=== PATIENT | female | born 1970 | race Two or more races ===

== ENCOUNTER 2021-06-07 18:49 | Emergency (ER) | payer MEDICAID, OTHER ==
[~2021-06-07] VITALS: Ht 149.9 cm; Wt 58.5 kg
[2021-06-07] MEDS ORDERED: PANT40TA2 PO (21:15)
[2021-06-07] MEDS ORDERED: PRED20TA2 PO (21:15)
[2021-06-07] MEDS ORDERED: predniSONE 20 MG TAB PO ONE (21:15)
[2021-06-07 21:44] VITALS: BP 146/91
== END 2021-06-07 21:46 | disposition home or self-care (01) ==
LOC: ER 18:54
DX: I16.0 Hypertensive urgency (principal); G51.0 Bell's palsy
CPT/HCPCS: 70450; 99284; J7512

== ENCOUNTER 2021-06-08 16:20 | Inpatient (IN) | payer MEDICAID ==
[~2021-06-08] VITALS: Ht 149.9 cm; Wt 65.8 kg
[~2021-06-08 16:20] MED LIST: PANT40TA2 PO; PRED20TA2 PO
[2021-06-08] MEDS ORDERED: LORazepam 2MG/ML-1ML VIAL IV ONE (16:45)
[2021-06-08] MEDS ORDERED: SODIUM CHLORIDE 0.9% 1,000 ML IV ONE ×2 (16:45→22:00)
[2021-06-08 17:21] LABS: Albumin 4.3 g/dL (3.4-5.0); BUN/Creatinine Ratio 11.2; Calcium 9.5 mg/dL (8.5-10.1); Magnesium 2.3 mg/dL (1.6-2.6); Potassium 4.3 mmol/L (3.5-5.1)
[2021-06-08 17:23] LABS: Bilirubin, Total 0.6 mg/dL (0.2-1.0); Total Protein 8.9 g/dL (6.4-8.2)
[2021-06-08 17:28] LABS: Basophils # (auto) 0 10 ^3/uL (0-0.2); Basophils % (auto) 0.2 % (0.0-2.0); Eosinophils # (auto) 0 10 ^3/uL (0-0.8); Eosinophils % (auto) 0.1 % (0.0-7.0); Hematocrit 43.6 % (36.0-46.0); Hemoglobin 14.3 g/dL (12.2-16.2); Lymphocytes # (auto) 1.2 10 ^3/uL (0.4-5.4); Lymphocytes % (auto) 11.8 % (10.0-50.0); Mean Corpuscular Hemoglobin 29.3 pg (28.0-32.0); Mean Corpuscular Hgb Conc. 32.8 g/dL (32.0-36.0); Mean Corpuscular Volume 89.2 fL (80.0-100.0); Monocytes # (auto) 0.2 10 ^3/uL (0-1.3); Monocytes % (auto) 1.8 % (0.0-12.0); Neutrophils % (auto) 86.1 % (37.0-80.0); Nucleated Red Blood Cells % 0.1 %; Red Blood Cells 4.89 10^6/uL (4.0-5.20); Red Cell Distribution Width 14.7 % (11.8-14.3); White Blood Cell 10.5 10^3/uL (4.4-10.8)
[2021-06-08 18:01] LABS: INR 0.99 (0.9-1.15); Partial Thromboplastin Time 25.4 sec (23.6-33.0)
[2021-06-08 20:34] LABS: Urine Bacteria FEW /hpf (None Seen); Urine Blood Negative /uL (Negative); Urine Mucus FEW (None Seen); Urine Specific Gravity 1.021 (1.001-1.035); Urine WBC 2 /hpf (0 - 5)
[2021-06-08 20:41] LABS: Alcohol, Urine < 3.0 mg/dL (0-10); Amphetamine Screen, Urine NEGATIVE (NEGATIVE); Barbiturate Scree,Urine NEGATIVE (NEGATIVE); Benzodiazephine Screen, Urine NEGATIVE (NEGATIVE); Cannabinoid Screen, Urine NEGATIVE (NEGATIVE); Cocaine Screen, Urine NEGATIVE (NEGATIVE); Opiate Scree,Urine NEGATIVE (NEGATIVE); Phencyclidine Screen, Urine NEGATIVE (NEGATIVE)
[2021-06-08] MEDS ORDERED: ONDANSETRON HCL 4 MG/2 ML VIAL IM ONE (22:00)
[2021-06-08] MEDS ORDERED: MORPHINE SULFATE INJECTION 2 MG/ML SYRG IV ONE (22:00)
[2021-06-08] MEDS ORDERED: ACETAMINOPHEN 325 MG TAB PO PRN (22:15)
[2021-06-08] MEDS ORDERED: ONDANSETRON HCL 4 MG/2 ML VIAL IV PRN (22:15)
[2021-06-08] MEDS ORDERED: predniSONE 20 MG TAB PO ONE (22:15)
[2021-06-08] MEDS ORDERED: MORPHINE SULFATE INJECTION 2 MG/ML SYRG IV PRN (22:15)
[2021-06-08] MEDS ORDERED: TEMAZEPAM 15 MG CAP PO PRN (22:15)
[2021-06-09 01:27] VITALS: BP 135/74
[2021-06-09 05:08] VITALS: BP 107/66
[2021-06-09 07:45] LABS: Basophils # (auto) 0 10 ^3/uL (0-0.2); Basophils % (auto) 0.1 % (0.0-2.0); Eosinophils # (auto) 0 10 ^3/uL (0-0.8); Hemoglobin 13.3 g/dL (12.2-16.2); Lymphocytes # (auto) 0.8 10 ^3/uL (0.4-5.4); Lymphocytes % (auto) 9.8 % (10.0-50.0); Mean Corpuscular Hemoglobin 29.3 pg (28.0-32.0); Mean Corpuscular Hgb Conc. 33.2 g/dL (32.0-36.0); Mean Corpuscular Volume 88.3 fL (80.0-100.0); Monocytes # (auto) 0.1 10 ^3/uL (0-1.3); Monocytes % (auto) 0.8 % (0.0-12.0); Neutrophils # (auto) 6.8 10 ^3/uL (1.6-8.6); Neutrophils % (auto) 89.3 % (37.0-80.0); Red Blood Cells 4.53 10^6/uL (4.0-5.20); Red Cell Distribution Width 14.4 % (11.8-14.3); White Blood Cell 7.7 10^3/uL (4.4-10.8)
[2021-06-09 07:55] LABS: BUN/Creatinine Ratio 17.2; Calcium 8.8 mg/dL (8.5-10.1); Potassium 3.8 mmol/L (3.5-5.1)
[2021-06-09] MEDS: LISINOPRIL 5 MG TAB PO SCH (09:25)
[2021-06-09 09:30] VITALS: BP 136/75
[2021-06-09] MEDS ORDERED: LORazepam 2MG/ML-1ML VIAL IV PRN (09:30)
[2021-06-09] MEDS: FAMOTIDINE 20 MG TAB PO SCH ×2 (09:36→21:49)
[2021-06-09] MEDS ORDERED: predniSONE 20 MG TAB PO SCH ×2 (10:00)
[2021-06-09] MEDS ORDERED: GADOTERATE MEG 10 MMOL/20ml INJ (0.5MMOL/ml) IV ONE (10:25)
[2021-06-09] MEDS ORDERED: DEXTROSE (50%) 50ML SYRG IV PRN (14:15)
[2021-06-09] MEDS ORDERED: INSULIN LANTUS (GLARGINE) 1 /0.01ml (100units/ml) SC ONE (14:15)
[2021-06-09] MEDS: HYDROcodone-ACET 5/325MG TAB PO PRN (16:29)
[2021-06-09] MEDS: InsuLIN REG 1unit/0.01ml Soln (100units/ml) SC SCH (16:49)
[2021-06-09] MEDS: ACCU-CHEK COMFORT CURVE STRIP VI SCH (16:50)
[2021-06-09 17:00] VITALS: BP 107/66
[2021-06-09 22:00] VITALS: BP 120/90
[2021-06-09] MEDS ORDERED: ATORVASTATIN 20 MG TAB PO SCH (22:00)
[2021-06-10] MEDS: ACCU-CHEK COMFORT CURVE STRIP VI SCH ×3 (00:18→12:12)
[2021-06-10] MEDS: InsuLIN REG 1unit/0.01ml Soln (100units/ml) SC SCH ×3 (00:21→11:54)
[2021-06-10 04:48] VITALS: BP 91/68
[2021-06-10 09:00] VITALS: BP 91/64
[2021-06-10] MEDS: HYDROcodone-ACET 5/325MG TAB PO PRN (09:22)
[2021-06-10] MEDS: FAMOTIDINE 20 MG TAB PO SCH (09:22)
[2021-06-10] MEDS ORDERED: INSULIN LANTUS (GLARGINE) 1 /0.01ml (100units/ml) SC SCH (10:00)
[2021-06-10] MEDS ORDERED: predniSONE 20 MG TAB PO SCH (10:00)
[2021-06-10] MEDS: LISINOPRIL 5 MG TAB PO SCH (10:00)
[2021-06-10] MEDS ORDERED: FAMO-12 PO (10:40)
[2021-06-10] MEDS ORDERED: PRED20TA2 PO (10:40)
[2021-06-10] MEDS ORDERED: METH4PAK PO (10:40)
[2021-06-10] MEDS ORDERED: GLIP5TAB12 PO (10:40)
[2021-06-10 12:30] VITALS: BP 99/69
[2021-06-10] MEDS ORDERED: TRAM50TA2 PO (14:52)
== END 2021-06-10 14:21 | disposition home or self-care (01) | DRG 48 ==
LOC: ER 16:20 → OVERFLOW 22:11 → EAST 06-09 01:30
PROVIDERS: ADMIT Nurse Practitioner; ATTEND Internal Medicine
DX: G51.0 Bell's palsy (principal); E11.65 Type 2 diabetes mellitus with hyperglycemia; I16.0 Hypertensive urgency; T38.0X5A Adverse effect of glucocorticoids and synthetic analogues, initial encounter; E66.01 Morbid (severe) obesity due to excess calories; I10 Essential (primary) hypertension; E78.5 Hyperlipidemia, unspecified; F41.9 Anxiety disorder, unspecified; Z90.710 Acquired absence of both cervix and uterus; Y92.89 Other specified places as the place of occurrence of the external cause; Z68.23 Body mass index [BMI] 23.0-23.9, adult
CPT/HCPCS: 36415; 70450; 70553; 71045; 80048; 80053; 80307; 81001; 82962; 83036; 83735; 83880; 85025; 85610; 85730; 93005; 96361; 96372; 96374; 96375; 97163; G0378; J1815; J2405

== ENCOUNTER 2021-06-26 17:12 | Emergency (ER) | payer MEDICAID ==
[~2021-06-26] VITALS: Ht 129.5 cm; Wt 56.2 kg
[~2021-06-26 17:12] MED LIST changes: +FAMO-12 PO; +GLIP5TAB12 PO; +METH4PAK PO; -PANT40TA2 PO; +TRAM50TA2 PO
[2021-06-26] MEDS ORDERED: KETOROLAC TROMETH 60MG/2ML VIAL IM ONE (18:30)
[2021-06-26 18:38] VITALS: BP 106/78
== END 2021-06-26 19:13 | disposition home or self-care (01) ==
LOC: ER 17:12
DX: G51.0 Bell's palsy (principal); R51.9 Headache, unspecified
CPT/HCPCS: 96372; 99283; J1885

== ENCOUNTER 2021-11-01 17:00 | Emergency (ER) | payer MEDICAID ==
[~2021-11-01] VITALS: Ht 129.5 cm; Wt 56.0 kg
[2021-11-01] MEDS ORDERED: LIDOCAINE VISCOUS 2% 15ML UD PO ONE (18:00)
[2021-11-01] MEDS ORDERED: ALUM & MAG HYDROX-SIMETH LIQ(MAALOX) 30 ML PO ONE (18:00)
[2021-11-01] MEDS ORDERED: FAMOTIDINE INJECTION 40 MG in SODIUM CHL 0.9% 100 ML IV ONE (18:00)
[2021-11-01] MEDS ORDERED: SODIUM CHLORIDE 0.9% 1,000 ML IV ONE ×2 (18:00→21:15)
[2021-11-01] MEDS ORDERED: ONDANSETRON HCL 4 MG/2 ML VIAL IM ONE (18:00)
[2021-11-01 18:46] LABS: Basophils # (auto) 0 10 ^3/uL (0-0.2); Basophils % (auto) 0.3 % (0.0-2.0); Eosinophils # (auto) 0 10 ^3/uL (0-0.8); Hematocrit 39.7 % (36.0-46.0); Hemoglobin 12.9 g/dL (12.2-16.2); Lymphocytes # (auto) 0.5 10 ^3/uL (0.4-5.4); Lymphocytes % (auto) 5.1 % (10.0-50.0); Mean Corpuscular Hemoglobin 28.7 pg (28.0-32.0); Mean Corpuscular Hgb Conc. 32.5 g/dL (32.0-36.0); Mean Corpuscular Volume 88.2 fL (80.0-100.0); Monocytes # (auto) 0.6 10 ^3/uL (0-1.3); Monocytes % (auto) 5.6 % (0.0-12.0); Neutrophils # (auto) 9.1 10 ^3/uL (1.6-8.6); White Blood Cell 10.2 10^3/uL (4.4-10.8)
[2021-11-01 18:51] LABS: Albumin 3.6 g/dL (3.4-5.0); BUN/Creatinine Ratio 16.7; Calcium 8.5 mg/dL (8.5-10.1); Potassium 3.1 mmol/L (3.5-5.1)
[2021-11-01 19:02] LABS: Bilirubin, Total 0.8 mg/dL (0.2-1.0); Total Protein 7.9 g/dL (6.4-8.2)
[2021-11-01] MEDS ORDERED: KETOROLAC TROMETH 30 MG/ML 1ML VIAL IV ONE (20:00)
[2021-11-01] MEDS ORDERED: POTASSIUM EFFERVESENT TAB 25 MEQ PO ONE (20:00)
[2021-11-01] MEDS ORDERED: HYDROcodone-ACET 5/325MG TAB PO ONE (20:00)
[2021-11-01] MEDS ORDERED: FAMOTIDINE (10MG/ML) 2ML VL IV ONE (20:36)
[2021-11-01 20:51] VITALS: BP 130/81
[2021-11-01] MEDS ORDERED: ACETAMINOPHEN 325 MG TAB PO ONE (21:15)
== END 2021-11-01 21:50 | disposition home or self-care (01) ==
LOC: ER 17:00
DX: B34.9 Viral infection, unspecified (principal); E87.6 Hypokalemia; E11.9 Type 2 diabetes mellitus without complications; R07.89 Other chest pain; Z90.710 Acquired absence of both cervix and uterus; Z20.822 Contact with and (suspected) exposure to COVID-19
CPT/HCPCS: 36415; 71045; 80053; 85025; 87426; 93005; 96361; 96365; 96372; 96375; 99285; J1885; J2405; J3490; J7030

== ENCOUNTER 2021-11-02 15:46 | Inpatient (IN) | payer MEDICAID ==
[~2021-11-02] VITALS: Ht 149.9 cm; Wt 63.0 kg
[2021-11-02] MEDS ORDERED: ACETAMINOPHEN 325 MG TAB PO ONE (16:30)
[2021-11-02] MEDS ORDERED: ACETAMINOPHEN 500 MG TAB PO ONE (16:32)
[2021-11-02 20:26] LABS: Basophils # (auto) 0 10 ^3/uL (0-0.2); Basophils % (auto) 0.3 % (0.0-2.0); Eosinophils # (auto) 0 10 ^3/uL (0-0.8); Hematocrit 37.9 % (36.0-46.0); Hemoglobin 12.5 g/dL (12.2-16.2); Lymphocytes # (auto) 0.3 10 ^3/uL (0.4-5.4); Mean Corpuscular Hemoglobin 28.4 pg (28.0-32.0); Mean Corpuscular Hgb Conc. 32.9 g/dL (32.0-36.0); Mean Corpuscular Volume 86.2 fL (80.0-100.0); Monocytes # (auto) 0.6 10 ^3/uL (0-1.3); Monocytes % (auto) 6.2 % (0.0-12.0); Neutrophils % (auto) 90.5 % (37.0-80.0); Red Blood Cells 4.39 10^6/uL (4.0-5.20); Red Cell Distribution Width 15.1 % (11.8-14.3); White Blood Cell 9.9 10^3/uL (4.4-10.8)
[2021-11-02 20:52] LABS: Albumin 3.3 g/dL (3.4-5.0); BUN/Creatinine Ratio 12.5; Calcium 7.8 mg/dL (8.5-10.1); Potassium 3.3 mmol/L (3.5-5.1)
[2021-11-02 21:04] LABS: Bilirubin, Total 0.9 mg/dL (0.2-1.0); Total Protein 6.9 g/dL (6.4-8.2)
[2021-11-03] VITALS (29 sets, daily range): BP systolic 81–119; BP diastolic 55–84
[2021-11-03 00:11] LABS: Urine Bacteria MANY /hpf (None Seen); Urine Blood TRACE /uL (Negative); Urine Specific Gravity 1.007 (1.001-1.035); Urine WBC 17 /hpf (0 - 5)
[2021-11-03] MEDS ORDERED: OXYCODONE W/ ACETAMINOPHEN 5/325MG TABLET PO ONE (00:30)
[2021-11-03] MEDS ORDERED: cefTRIAXone 1GM/50ML D5W 50 ML IV ONE (01:45)
[2021-11-03] MEDS ORDERED: AZITHROMYCIN 250 MG TAB PO ONE (01:45)
[2021-11-03] MEDS ORDERED: SODIUM CHLORIDE 0.9% 1,000 ML IV ONE (03:45)
[2021-11-03] MEDS ORDERED: TEMAZEPAM 15 MG CAP PO PRN (04:00)
[2021-11-03] MEDS ORDERED: MORPHINE SULFATE INJ 2 MG/ml SYRG IV PRN (04:00)
[2021-11-03] MEDS ORDERED: ALBUMIN 5% 250 ML IV ONE (04:00)
[2021-11-03] MEDS ORDERED: ONDANSETRON HCL 4 MG/2 ML VIAL IV PRN (04:00)
[2021-11-03] MEDS ORDERED: DEXTROSE (50%) 50ML SYRG IV PRN (04:00)
[2021-11-03] MEDS ORDERED: NITROGLYCERIN 0.4 MG SL TAB SL PRN (04:00)
[2021-11-03] MEDS ORDERED: LORazepam 2MG/ML-1ML VIAL IV ONE (04:15)
[2021-11-03] MEDS ORDERED: dilTIAZem 25 MG/5 ML VIAL IV ONE ×2 (05:19→05:30)
[2021-11-03] MEDS: ACETAMINOPHEN 325 MG TAB PO PRN (05:57)
[2021-11-03] MEDS ORDERED: SODIUM CHLORIDE 0.9% 500 ML IV ONE (07:00)
[2021-11-03] MEDS: ACCU-CHEK COMFORT CURVE STRIP VI SCH ×4 (07:04→22:00)
[2021-11-03] MEDS: InsuLIN REG 1unit/0.01ml Soln (100units/ml) SC SCH ×4 (07:07→22:00)
[2021-11-03 07:58] LABS: Basophils # (auto) 0 10 ^3/uL (0-0.2); Basophils % (auto) 0.2 % (0.0-2.0); Eosinophils # (auto) 0 10 ^3/uL (0-0.8); Hematocrit 34.3 % (36.0-46.0); Hemoglobin 11.4 g/dL (12.2-16.2); Lymphocytes # (auto) 0.2 10 ^3/uL (0.4-5.4); Lymphocytes % (auto) 3.5 % (10.0-50.0); Mean Corpuscular Hemoglobin 28.7 pg (28.0-32.0); Mean Corpuscular Hgb Conc. 33.1 g/dL (32.0-36.0); Mean Corpuscular Volume 86.7 fL (80.0-100.0); Monocytes # (auto) 0.2 10 ^3/uL (0-1.3); Monocytes % (auto) 2.5 % (0.0-12.0); Neutrophils # (auto) 6.1 10 ^3/uL (1.6-8.6); Neutrophils % (auto) 93.8 % (37.0-80.0); Nucleated Red Blood Cells % 0.1 %; Red Blood Cells 3.96 10^6/uL (4.0-5.20); Red Cell Distribution Width 15.1 % (11.8-14.3); White Blood Cell 6.5 10^3/uL (4.4-10.8)
[2021-11-03] MEDS ORDERED: SODIUM CHLORIDE 0.9% 1,000 ML IV SCH (08:00)
[2021-11-03 08:09] LABS: BUN/Creatinine Ratio 10.3; Calcium 7.9 mg/dL (8.5-10.1); Potassium 3.1 mmol/L (3.5-5.1)
[2021-11-03] MEDS ORDERED: SODIUM CHLORIDE 0.9% 2,000 ML IV ONE (08:45)
[2021-11-03] MEDS: cefTRIAXone 1GM/50ML D5W 50 ML IV SCH (09:29)
[2021-11-03] MEDS: PANTOPRAZOLE 40 MG TAB PO SCH (10:00)
[2021-11-03] MEDS: AZITHROMYCIN 500MG/ 250ML 250 ML IV SCH (10:00)
[2021-11-03] MEDS: NOREPINEPHRINE 8 MG/250ML KIT 250 ML IV SCH (11:48)
[2021-11-03] MEDS ORDERED: POTASSIUM EFFERVESENT TAB 25 MEQ PO ONE (13:30)
[2021-11-03] MEDS ORDERED: VANCOMYCIN PER PHARMACY 0 MG IV SCH (13:30)
[2021-11-03] MEDS ORDERED: VANCOMYCIN 1GM/250ML 250 ML IV ONE (15:00)
[2021-11-03] MEDS ORDERED: METF-370 PO (17:13)
[2021-11-04] VITALS (65 sets, daily range): BP systolic 82–131; BP diastolic 55–83
[2021-11-04] MEDS: SODIUM CHLORIDE 0.9% 1,000 ML IV SCH ×4 (02:30→21:56)
[2021-11-04] MEDS: ACETAMINOPHEN 325 MG TAB PO PRN ×3 (03:30→18:27)
[2021-11-04 05:13] LABS: Basophils # (auto) 0 10 ^3/uL (0-0.2); Basophils % (auto) 0.1 % (0.0-2.0); Eosinophils # (auto) 0 10 ^3/uL (0-0.8); Eosinophils % (auto) 0.1 % (0.0-7.0); Hematocrit 31.7 % (36.0-46.0); Hemoglobin 10.2 g/dL (12.2-16.2); Lymphocytes # (auto) 1.2 10 ^3/uL (0.4-5.4); Lymphocytes % (auto) 10.7 % (10.0-50.0); Mean Corpuscular Hgb Conc. 32.1 g/dL (32.0-36.0); Mean Corpuscular Volume 87.2 fL (80.0-100.0); Monocytes % (auto) 9.1 % (0.0-12.0); Neutrophils # (auto) 9.1 10 ^3/uL (1.6-8.6); Red Blood Cells 3.63 10^6/uL (4.0-5.20); Red Cell Distribution Width 15.5 % (11.8-14.3); White Blood Cell 11.4 10^3/uL (4.4-10.8)
[2021-11-04 05:34] LABS: Albumin 2.5 g/dL (3.4-5.0); Calcium 7.8 mg/dL (8.5-10.1); Potassium 3.7 mmol/L (3.5-5.1)
[2021-11-04 05:40] LABS: BUN/Creatinine Ratio 19.4; Bilirubin, Total 0.5 mg/dL (0.2-1.0); Total Protein 5.3 g/dL (6.4-8.2)
[2021-11-04] MEDS: InsuLIN REG 1unit/0.01ml Soln (100units/ml) SC SCH ×4 (06:39→21:54)
[2021-11-04] MEDS: ACCU-CHEK COMFORT CURVE STRIP VI SCH ×4 (06:39→21:55)
[2021-11-04] MEDS: VANCOMYCIN 1GM/250ML 250 ML IV SCH ×2 (06:39→21:53)
[2021-11-04] MEDS: cefTRIAXone 1GM/50ML D5W 50 ML IV SCH (09:11)
[2021-11-04] MEDS: AZITHROMYCIN 500MG/ 250ML 250 ML IV SCH (11:22)
[2021-11-04] MEDS: PANTOPRAZOLE 40 MG TAB PO SCH (11:23)
[2021-11-04] MEDS: NOREPINEPHRINE 8 MG/250ML KIT 250 ML IV SCH (11:30)
[2021-11-05] VITALS (18 sets, daily range): BP systolic 99–132; BP diastolic 62–90
[2021-11-05 05:12] LABS: Basophils # (auto) 0 10 ^3/uL (0-0.2); Basophils % (auto) 0.3 % (0.0-2.0); Eosinophils # (auto) 0 10 ^3/uL (0-0.8); Eosinophils % (auto) 0.2 % (0.0-7.0); Hematocrit 31.4 % (36.0-46.0); Hemoglobin 10.5 g/dL (12.2-16.2); Lymphocytes # (auto) 1.4 10 ^3/uL (0.4-5.4); Lymphocytes % (auto) 15.4 % (10.0-50.0); Mean Corpuscular Hemoglobin 28.8 pg (28.0-32.0); Mean Corpuscular Hgb Conc. 33.4 g/dL (32.0-36.0); Mean Corpuscular Volume 86.2 fL (80.0-100.0); Monocytes # (auto) 0.7 10 ^3/uL (0-1.3); Monocytes % (auto) 7.3 % (0.0-12.0); Neutrophils % (auto) 76.8 % (37.0-80.0); Red Blood Cells 3.64 10^6/uL (4.0-5.20); Red Cell Distribution Width 15.2 % (11.8-14.3); White Blood Cell 9.2 10^3/uL (4.4-10.8)
[2021-11-05 05:32] LABS: BUN/Creatinine Ratio 23.1; Calcium 7.6 mg/dL (8.5-10.1); Potassium 3.4 mmol/L (3.5-5.1)
[2021-11-05] MEDS: ACCU-CHEK COMFORT CURVE STRIP VI SCH ×4 (06:37→22:14)
[2021-11-05] MEDS: InsuLIN REG 1unit/0.01ml Soln (100units/ml) SC SCH ×4 (06:37→22:14)
[2021-11-05] MEDS: SODIUM CHLORIDE 0.9% 1,000 ML IV SCH ×2 (07:00→16:14)
[2021-11-05] MEDS: PANTOPRAZOLE 40 MG TAB PO SCH (09:07)
[2021-11-05] MEDS: cefTRIAXone 1GM/50ML D5W 50 ML IV SCH (09:11)
[2021-11-05] MEDS: AZITHROMYCIN 500MG/ 250ML 250 ML IV SCH (10:00)
[2021-11-05] MEDS: NOREPINEPHRINE 8 MG/250ML KIT 250 ML IV SCH (11:30)
[2021-11-05] MEDS: VANCOMYCIN 1GM/250ML 250 ML IV SCH ×2 (12:02→22:07)
[2021-11-05] MEDS ORDERED: SULF400T11 PO (14:16)
[2021-11-05] MEDS ORDERED: DOXY-338 PO (14:16)
[2021-11-05] MEDS: ACETAMINOPHEN 325 MG TAB PO PRN (22:14)
[2021-11-06] MEDS: SODIUM CHLORIDE 0.9% 1,000 ML IV SCH (03:35)
[2021-11-06] MEDS: VANCOMYCIN 1GM/250ML 250 ML IV SCH ×2 (04:16→12:00)
[2021-11-06 04:46] VITALS: BP 110/63
[2021-11-06] MEDS: ACCU-CHEK COMFORT CURVE STRIP VI SCH ×2 (06:54→12:34)
[2021-11-06] MEDS: InsuLIN REG 1unit/0.01ml Soln (100units/ml) SC SCH ×3 (06:55→12:38)
[2021-11-06 07:50] VITALS: BP 123/75
[2021-11-06 08:45] VITALS: BP 123/75
[2021-11-06] MEDS: PANTOPRAZOLE 40 MG TAB PO SCH (09:18)
[2021-11-06] MEDS: cefTRIAXone 1GM/50ML D5W 50 ML IV SCH (09:18)
[2021-11-06 12:19] VITALS: BP 123/75
[2021-11-06 13:54] VITALS: BP 123/75
== END 2021-11-06 16:30 | disposition home or self-care (01) | DRG 720 ==
LOC: ER 15:46 → TELE 11-03 03:57 → ICU CENTRL 11-03 16:45 → WEST WING 11-05 17:49
PROVIDERS: ADMIT Nurse Practitioner; ATTEND Hospitalist
DX: A41.9 Sepsis, unspecified organism (principal); G93.41 Metabolic encephalopathy; N12 Tubulo-interstitial nephritis, not specified as acute or chronic; B34.9 Viral infection, unspecified; E11.9 Type 2 diabetes mellitus without complications; Z20.822 Contact with and (suspected) exposure to COVID-19; Z86.73 Personal history of transient ischemic attack (TIA), and cerebral infarction without residual deficits; Z90.710 Acquired absence of both cervix and uterus
CPT/HCPCS: 36415; 36600; 70450; 71045; 74176; 80048; 80053; 80202; 81001; 82805; 82962; 83605; 84484; 85025; 87040; 87081; 87086; 87804; 93005; 96365; 96375; G0378; J0696; J1815; J2405

== ENCOUNTER → 2023-03-15 | Outpatient (CLI) | payer MEDICAID ==
[~2023-03-15] VITALS: Ht 149.9 cm; Wt 54.4 kg
[~2023-03-15] MED LIST changes: +DOXY-447 PO; -FAMO-12 PO; -GLIP5TAB12 PO; +METF-370 PO; -METH4PAK PO; -PRED20TA2 PO; +SULF400T11 PO; -TRAM50TA2 PO
== END | disposition home or self-care (01) ==
LOC: Rad HDHVI 13:33
PROVIDERS: ATTEND Internal Medicine Cardiovascular Disease
DX: Z01.810 Encounter for preprocedural cardiovascular examination (principal); R07.9 Chest pain, unspecified; R06.02 Shortness of breath; E11.8 Type 2 diabetes mellitus with unspecified complications
CPT/HCPCS: 78452; 93017; 96374; A9500

== ENCOUNTER → 2023-03-22 | Outpatient (CLI) | payer MEDICAID | END | disposition home or self-care (01) | LOC: Rad HDHVI 13:53 | PROVIDERS: ATTEND Internal Medicine Cardiovascular Disease | DX: I08.1 Rheumatic disorders of both mitral and tricuspid valves (principal) | CPT/HCPCS: 93306 ==

== ENCOUNTER 2024-05-10 12:13 | Emergency (ER) | payer MEDICAID ==
[~2024-05-10] VITALS: Ht 124.5 cm; Wt 121.8 kg
[~2024-05-10 12:13] MED LIST changes: -DOXY-447 PO; +DOXY1CAP58 PO
[2024-05-10 14:10] VITALS: BP 135/96; PULSE 84; RESP 16; TEMP 97.7; O2SAT 96
--- NOTE | 2024-05-10 14:20 | DVH ---
CLINICAL INDICATION: LOW BACK PAIN TO LOWER LEGS TECHNIQUE: 3 radiographic views of the lumbar spine were obtained. Comparison: None FINDINGS/IMPRESSION: There is no evidence of acute fracture or dislocation of the lumbar spine. The visualized joint space is well maintained. The alignment is anatomical. There is no radiopaque foreign body.
--- NOTE | 2024-05-10 14:45 | ED.PDOC ---
Back pain HPI HPI Comments A 53 YEAR OLD FEMALE PRESENTS TO THE ED WITH CHIEF COMPLAINT OF LOWER BACK PAIN. PATIENT REPORTS THAT SHE HAS BEEN EXPERIENCING INTERMITTENT LOWER BACK PAIN THAT RADIATES DOWN HER LEGS FOR THE PAST 5 MONTHS. PATIENT RELAYS THAT SHE HAS A PENDING MRI ORDERED BY HER PCP. PATIENT DENIES ANY NUMBNESS, WEAKNESS, LEG SWELLING, FALL, OR INJURY AT THIS TIME. NO OTHER SYMPTOMS REPORTED AT THIS TIME OF CARE. PT IS ALERT, ORIENTATION X4 WITH NORMAL GAIT. Chief Complaint: Back Pain Time Seen by MD: 14:42 Primary Care Provider: AIXA Reviewed Notes: Nurses Notes, Medications, Allergies Allergies: Coded Allergies: NO KNOWN ALLERGIES (Unverified , 06/07/21) Home Meds Active Scripts Gabapentin (Gabapentin) 300 Mg Cap, 300 MG PO BID, #30 CAP Prov:EMILY AVALOS 05/10/24 Ibuprofen (Ibuprofen) 800 Mg Tab, 1 TAB PO TID, #30 TAB Prov:EMILY AVALOS 25 Doxycycline (Monohydrate) (Doxycycline) 100 Mg Cap, 100 MG PO BIDBRS, #10 CAP Prov:SHILO GAMBOA MD 11/05/21 Sulfamethoxazole-Trimethoprim (Bactrim) 1 Tab Tab, 1 TAB PO BID, #14 TAB Prov:SHILO GAMBOA MD 11/05/21 Reported Medications Metformin Hydrochloride (Metformin Hcl) 500 Mg Tab, 500 MG PO DAILY for 30 Days, MG 11/03/21 Information Source: Patient Mode of Arrival: Ambulatory Timing: Months Duration: Intermittent Location of Back pain: (B) Lower back Radiates to: Posterior: (B) Buttocks, (B) Thigh Radiates to: Lateral: (B) Buttocks, (B) Thigh Severity: Moderate Prehospital treatment: None Quality: Aching Onset: Spontaneous History of: Chronic Back Pain Modifying Factors: Movement, Twisting, Nothing Associated signs and symptoms: None Past Medical History PAST MEDICAL HISTORY: CVA, DM Surgical History: Hysterectomy HALL CLEANER History: No Pertinent HALL CLEANER History Family History Family History: Reviewed,noncontributory to illness, Family hx of DM Social History Smoker: Non-Smoker Alcohol: Denies ETOH Use Drugs: Denies Drug Use Lives In: Home Constitutional: denies: chills, diaphoresis, fatigue, fever, malaise, sweats, weakness, others EENTM: denies: blurred vision, double vision, ear bleeding, ear discharge, ear drainage, ear pain, ear ringing, eye pain, eye redness, hearing loss, mouth pain, mouth swelling, nasal discharge, nose bleeding, nose congestion, nose pain, photophobia, tearing, throat pain, throat swelling, voice changes, others Respiratory: denies: cough, hemoptysis, orthopnea, SOB at rest, shortness of breath, SOB with excertion, stridor, wheezing, others Cardiovascular: denies: chest pain, dizzy spells, diaphoresis, Dyspnea on exertion, edema, irregular heart beat, left arm pain, lightheadedness, palpitations, PND, syncope, others Gastrointestinal: denies: abdomen distended, abdominal pain, blood streaked bowels, constipated, diarrhea, dysphagia, difficulty swallowing, hematemesis, melena, nausea, poor appetite, poor fluid intake, rectal bleeding, rectal pain, vomiting, others Genitourinary: denies: abnormal vagina bleeding, burning, dyspareunia, dysuria, flank pain, frequency, hematuria, incontinence, pain, , vagina discharge, urgency, others Neurological: denies: dizziness, fainting, headache, left sided numbness, left sided weakness, numbness, paresthesia, pre-existing deficit, right sided numbness, right sided weakness, seizure, speech problems, tingling, tremors, weakness, others Musculoskeletal: reports: back pain (RADIATES TO BILATERAL LEGS), muscle pain; denies: gout, joint pain, joint swelling, muscle stiffness, neck pain, others Integumetry: denies: bruises, change in color, change in hair/nails, dryness, laceration, lesions, lumps, rash, wounds, others Allergic/Immunocompromised: denies: Difficulty Healing, Frequent Infections, Hives, Itching, others Hematologic/Lymphatic: denies: anemia, blood clots, easy bleeding, easy bruising, swollen glands, others Endocrine: denies: excessive hunger, excessive sweating, excessive thirst, excessive urination, flushing, intolerance to cold, intolerance to heat, unexplained weight gain, unexplained weight loss, others Psychiatric: denies: anxiety, bipolar disorder, depression, hopeless, panic disorder, schizophrenia, sleepless, suicidal, others All Other Systems: Reviewed and Negative Physical Exam General Appearance: No Apparent Distress, Normal HEENT: Normal ENT Inspection, PERRL/EOMI, Pharynx Normal Neck: Full Range of Motion, Non-Tender, Normal, Normal Inspection Respiratory: Chest Non-Tender, Lungs Clear, No Accessory Muscle Use, No Respiratory Distress, Normal Breath Sounds Cardiovascular: No Edema, No JVD, No Murmur, No Gallop, Normal Peripheral Pulses, Regular Rate/Rhythm Breast Exam: Deferred Gastrointestinal: No Organomegaly, Non Tender, No Pulsatile Mass, Normal Bowel Sounds, Soft Genitalia: Deferred Pelvic: Deferred Rectal: Deferred Extremities: No calf tenderness, Normal capillary refill, Normal inspection, Normal range of motion, Non-tender, No pedal edema Musculoskeletal : Location: Bilateral Extremity Location: Back Apperance: Tenderness: Moderate (MUSCLE SPASNM ON LOWER BACK, NO BONY TENDERNESS, SWELLING AND DEFORMITY. ) Neurologic: Alert, roll tension tester II-XII nml as Tested, No Motor Deficits, Normal Affect, Normal Mood, No Sensory Deficits Cerebellar Function: Normal Reflexes: Normal Skin: Dry, Normal Color, Warm Peripheral Pulses: 2+ carotid (R), 2+ carotid (L), 2+ dorsalis pedis (R), 2+ dorsalis pedis (L) Lymphatic: No Adenopathy Was a procedure done? Was a procedure done?: No Back Pain Differential Dx Differential Diagnosis: Musculoskeletal Pain, Strain, Other (LOWER BACK WITH SCIATIC) X-Ray, Labs, Meds, VS Vital Signs Date Time Temp Pulse Resp B/P (MAP) Pulse Ox O2 Delivery O2 Flow Rate FiO2 05/10/24 12:40 97.7 84 16 135/86 (102) 96 97.7 Current Medications Medications (Trade) Dose Ordered Sig/Jalen Route Start Time Stop Time Status Last Admin Ketorolac Tromethamine (Toradol Injection) 60 mg ONCE ONCE IM 05/10/24 14:45 05/10/24 14:46 DC 05/10/24 14:53 L-SPINE XR: FINDINGS/IMPRESSION: There is no evidence of acute fracture or dislocation of the lumbar spine. The visualized joint space is well maintained. The alignment is anatomical. There is no radiopaque foreign body. X-Ray, Labs, Meds, VS Comment EXTERNAL MEDICAL RECORDS REVIEWED: [NONE] INDEPENDENT HISTORIANS: [NONE] SOCIAL DETERMINANTS OF HEALTH: [NONE] LABS ORDERED: NONE REVIEWED AND INTERPRETED RESULTS: L-SPINE XR IMAGING ORDERED: L-SPINE XR TREATMENTS ORDERED: TORADOL 60 MG IM PROCEDURES PERFORMED: NONE CRITICAL CARE TIME: NONE I HAVE DISCUSSED THE PATIENT WITH THE ATTENDING PHYSICIAN DR. MORGAN] AND HE AGREES WITH THE PATIENT'S PLAN OF CARE AND DISPOSITION. BASED ON HISTORY OF PRESENT ILLNESS, AND PHYSICAL EXAM, PATIENT WILL BE DISCH ARGED HOME. DISCUSSED PLAN FOR DISCHARGE HOME WITH RX IBUPROFEN AND GABAPENTIN. MEDICATION WARNINGS GIVEN. SHARED DECISION MAKING: DISCUSSED WITH PATIENT THAT THEIR WORKUP WAS NORMAL. PATIENT INSTRUCTED TO FOLLOW UP WITH PRIMARY CARE PROVIDER IN 1-2 DAYS FOR RE- EVALUATION OF SYMPTOMS. PATIENT VERBALIZES UNDERSTANDING TO RETURN TO ED FOR NEW OR WORSENING SYMPTOMS OR IF FOLLOW UP WITH PCP CANNOT BE OBTAINED. PATIENT FEELS COMFORTABLE GOING HOME AT THIS TIME. ALL QUESTIONS ADDRESSED AT TIME OF DISCHARGE. Time of 1ST Reevaluation: 15:00 Reevaluation 1ST: Improved Patient Education/Counseling: Diagnosis, Treatment, Need For Follow Up Family Education/Counseling: Diagnosis, Treatment, Need For Follow Up Medical Screening: No EMC Exist At This Time Departure 1 Departure Time of Disposition: 15:00 Impression: Primary Impression: Low back pain with sciatica Qualified Codes: M54.42 - Lumbago with sciatica, left side; M54.41 - Lumbago with sciatica, right side; G89.29 - Other chronic pain Disposition: 01 HOME / SELF CARE / HOMELESS Condition: Stable Additional Instructions: FOLLOW-UP WITH PCP IN 1 TO 2 DAYS. TAKE MEDICATIONS PRESCRIBED. RETURN TO ED FOR ANY NEW OR WORSENING SYMPTOMS. e-Prescriptions Gabapentin (Gabapentin) 300 Mg Cap 300 MG PO BID, #30 CAP Prov: EMILY AVALOS 05/10/24 Ibuprofen (Ibuprofen) 800 Mg Tab 1 TAB PO TID, #30 TAB Prov: EMILY AVALOS 05/10/24 Discharged With: Self, Spouse Critical Care Note Critical Care Time?: No Stability Stability form required: No Heart Score Heart Score: Heart Score Response (Comments) Value History N/A 0 EKG N/A 0 Age N/A 0 Risk Factors N/A 0 Troponin N/A 0 Total 0 I personally scribed for EMILY AVALOS ([email or web address]) on 05/10/24 at 14:45. Electronically submitted by Anderson Bryan ([email or web address]). EMILY AVALOS May 10, 2024 14:45
[2024-05-10] MEDS: KETOROLAC TROMETH 60MG/2ML VIAL IM ONE (14:53)
[2024-05-10] MEDS ORDERED: IBUP-1456 PO (14:55)
[2024-05-10] MEDS ORDERED: GABA-1250 PO (14:55)
[2024-05-10] MEDS ORDERED: TRAM-626 PO (15:09)
[2024-05-10] MEDS ORDERED: METH4PAK PO (15:09)
== END 2024-05-10 15:08 | disposition home or self-care (01) ==
LOC: ER 12:26
DX: M54.41 Lumbago with sciatica, right side (principal); M54.42 Lumbago with sciatica, left side; E11.9 Type 2 diabetes mellitus without complications; Z86.73 Personal history of transient ischemic attack (TIA), and cerebral infarction without residual deficits; Z90.710 Acquired absence of both cervix and uterus; Z79.1 Long term (current) use of non-steroidal anti-inflammatories (NSAID); Z79.84 Long term (current) use of oral hypoglycemic drugs; Z79.899 Other long term (current) drug therapy
CPT/HCPCS: 72100; 96372; 99283; J1885